=== PATIENT | male | born 1980 | race Caucasian/White ===

== ENCOUNTER 2016-05-24 09:17 | Emergency (ER) | payer OTHER ==
[2016-05-24] MEDS ORDERED: TETRACAINE HCL 0.5% OPH SOLN 2 ML OD ONE (09:45)
[2016-05-24] MEDS ORDERED: KETOROLAC TROMETHAMINE 0.45% 4 DROP/0.4 ML DROPERETTE OD ONE (09:45)
[2016-05-24] MEDS ORDERED: HOMATROPINE HBR 5% OPH SOLN 5 ML OD ONE (09:45)
[2016-05-24] MEDS ORDERED: POLYMYXIN B SULFATE/TMP OPH SOLN (10 ML/ER DISP) OD ONE (10:20)
--- NOTE | 2016-05-24 10:20 | ER Document Report ---
ED Eye Complaint - General Time seen by provider: 10:15 Mode of Arrival: Ambulatory Information source: Patient TRAVEL OUTSIDE OF THE [place] IN LAST 30 DAYS: No - HPI Patient complains to provider of: eye pain Onset: Yesterday Associated symptoms: Other - See above - General Chief Complaint: Eye Problem Stated Complaint: EYE PAIN Notes: Patient is a 36 year old male who presents to the emergency department complaining of right eye pain. Patient reports he was cutting pipes at work 2 days ago and thinks he may have gotten copper in the eye but it didn't really start bothering him until yesterday when he was playing with his toddler daughter and she hit his eye. Patient thinks she may have hit his eye with her fingernail. 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 Family History: Reviewed & Not Pertinent Patient has suicidal ideation: No Patient has homicidal ideation: No Past Surgical History: Reports: Other - Hx Left eye surgery - Immunizations Hx Diphtheria, Pertussis, Tetanus Vaccination: Yes Review of Systems - Review of Systems Constitutional: No symptoms reported EENT: See HPI, Eye pain Cardiovascular: No symptoms reported Respiratory: No symptoms reported Gastrointestinal: No symptoms reported Genitourinary: No symptoms reported Male Genitourinary: No symptoms reported Musculoskeletal: No symptoms reported Skin: No symptoms reported Hematologic/Lymphatic: No symptoms reported Neurological/Psychological: No symptoms reported -: Yes All other systems reviewed and negative Physical Exam - Vital signs Interpretation: Normal - General General appearance: Appears well, Alert - HEENT Head: Normocephalic, Atraumatic Eyes: Other - some mucous discharge from right eye Cornea: Corneal abrasion - Right upper cornea has a 3mm x 5mm abrasion - Respiratory Respiratory status: No respiratory distress - Extremities General upper extremity: Normal inspection General lower extremity: Normal inspection - Neurological Neuro grossly intact: Yes Cognition: Normal Orientation: AAOx4 [place] Coma Scale Eye Opening: Spontaneous [place] Coma Scale Verbal: Oriented [place] Coma Scale Motor: Obeys Commands [place] Coma Scale Total: 15 Speech: Normal - Psychological Associated symptoms: Normal affect, Normal mood - Skin Skin Temperature: Warm Skin Moisture: Dry Skin Color: Normal Course - Re-evaluation Re-evalutation: 05/24/16 11:53 PROCEDURE: The right eye was anesthetized with tetracaine eye drops. The eye was stained with fluorescein dye. There is a large 3 x 5 mm abrasion in the upper right cornea in the midline. The stain was irrigated out with normal saline. Homatropine drops were placed in the right eye. Followed by ketorolac eyedrops , and then polymyxin sulfate eyedrops. (VICTORINO LEMONS) - Vital Signs Vital signs: Temp Pulse Resp BP Pulse Ox 98.2 F 89 16 132/82 H 97 05/24/16 11:32 05/24/16 11:32 05/24/16 11:32 05/24/16 11:32 05/24/16 11:32 Discharge - Discharge Clinical Impression: Corneal abrasion, right Qualifiers: Encounter type: initial encounter Qualified Code(s): S05.01XA - Injury of conjunctiva and corneal abrasion without foreign body, right eye, initial encounter Condition: Stable Disposition: HOME, SELF-CARE Additional Instructions: Corneal Abrasion: You have a corneal abrasion, a scratch on the surface of the eye. The pain of a corneal abrasion feels like a sharp particle in the eye. Usually, antibiotics are placed in the eye to prevent infection. Occasionally, medication will be placed in the eye to dilate the pupil. This is done to relieve some of your discomfort and is only temporary. Pain medication may be required. Don't drive or operate machinery until you have the use of both your eyes. The abrasion usually is healed in one or two days. A follow-up examination to confirm healing is recommended. Call the doctor or return at once if you develop severe pain, decreasing vision, eye swelling, or purulent drainage. PUT THE ACULAR DROP: ONE DROP IN THE RIGHT EYE EVERY FOUR HOURS. PUT THE POLYMIXIN EYE DROP: 2 DROPS EVERY SIX HOURS. USE COLD COMPRESSES TO THE EYE TODAY. AVOID WIND AND LIGHT. REST. KEEP THE EYE CLOSED. FOLLOW UP WITH A LOCAL EYE DOCTOR THURSDAY IF NOT IMPROVING. RETURN TO THE EMERGENCY ROOM IF ANY NEW OR WORSENING SYMPTOMS. Prescriptions: Ketorolac Tromethamine [Acular] 1 drop OD Q4 PRN #5 ml PRN Reason: Scribe Attestation: 05/24/16 11:22 I personally performed the services described in the documentation, reviewed and edited the documentation which was dictated to the scribe in my presence, and it accurately records my words and actions. (VICTORINO LEMONS) Scribe Documentation - Scribe Written by Rebecca:: rebecca Davenport, 05/24/16, 1026 acting as scribe for :: Mirella
[2016-05-24 11:32] VITALS: BP 132/82
== END 2016-05-24 11:32 | disposition home or self-care (01) ==
LOC: ER 09:17
DX: S05.01XA Injury of conjunctiva and corneal abrasion without foreign body, right eye, initial encounter (principal); X58.XXXA Exposure to other specified factors, initial encounter
CPT/HCPCS: 99283; J3490 ×2